=== PATIENT | female | born 1970 | race Hispanic/Latino ===

== ENCOUNTER 2025-03-03 09:26 | Emergency (ER) | payer BC ==
[~2025-03-03] VITALS: Ht 165.1 cm; Wt 74.9 kg
[2025-03-03 10:12] LABS: BASOPHILS 0.5 % (0.1-1.2); EOSINOPHILS 2.3 % (0.7-5.8); LYMPHOCYTES 31.0 % (19.3-51.7); MCH 29.9 PG (25.6-32.2); MCHC 34.8 g/dL (32.2-35.5); MCV 85.9 fL (79.4-94.8); MONOCYTES 10.8 % (4.7-12.5); NEUTROPHILS 54.9 % (34.0-71.1); RBC 4.32 M/uL (3.93-5.22)
[2025-03-03 10:23] LABS: GLOMERULAR FILTRATION RATE,EST 112.0 mL/min (>60); UREA NITROGEN 11.0 mg/dL (7-18)
[2025-03-03] MEDS ORDERED: OMEPRAZOLE20 MG PO (11:30)
[2025-03-03 11:39] VITALS: BP 135/83
== END 2025-03-03 11:39 | disposition home or self-care (01) ==
LOC: ED 09:26
PROVIDERS: Emergency Medicine
DX: K92.0 Hematemesis (principal)
CPT/HCPCS: 36415; 71045; 80048; 85025; 99284-25